=== PATIENT | female | born 1945 | race Caucasian/White ===

== ENCOUNTER 2022-08-26 07:20 | Day surgery (SDC) | payer MEDICARE, SELFPAY ==
[2022-08-20 14:56] VITALS: BMI 25.9
[2022-08-26] VITALS (12 sets, daily range): BP systolic 124–221; BP diastolic 48–95; PULSE 78–95; RESP 10–18; TEMP 35.9–37; O2SAT 94–98; BMI 25.9
--- NOTE | 2022-08-26 | DI.RAD.S_ITS ---
PROCEDURE: XR HIP W PEL IF DONE RT 2V INDICATIONS: ATERIOR HIP TECHNIQUE: 3 operative C-arm view(s) of the hip acquired. COMPARISON: [facility], , XR HIP W PEL IF DONE RT 2V, 08/26/2022, 15:09. FINDINGS: Bones: 3 operative C-arm views of the right hip demonstrate performance of a total right hip arthroplasty with no radiographic evidence of complications. Soft tissues: Overlying postoperative changes are noted. No suspicious soft tissue densities. IMPRESSION: Operative imaging utilized during total right hip arthroplasty. Dictated by: Demarco Amado M.D. on 08/26/2022 at 16:51 Approved by: Demarco Amado M.D. on 08/26/2022 at 16:52
--- NOTE | 2022-08-26 08:49 | DI.RAD.S_ITS ---
PROCEDURE: XR HIP W PEL IF DONE RT 2V INDICATIONS: Postop TECHNIQUE: AP pelvis with lateral view(s) of the right hip(s). COMPARISON: [facility], , XR HIP W PEL IF DONE RT 2V, 08/26/2022, 13:59. FINDINGS: Bones: Severe left hip degenerative changes partially seen. Right hip arthroplasty. Positioning appears appropriate. Soft tissues: Postsurgical changes in the soft tissues. IMPRESSION: Postsurgical changes following right hip arthroplasty. Partially seen severe left hip degenerative changes. Dictated by: Saad Boone M.D. on 08/26/2022 at 15:35 Approved by: Saad Boone M.D. on 08/26/2022 at 15:36
[2022-08-26] MEDS: LACTATED RINGERS 1,000 ML 42 ML IV (09:46)
[2022-08-26] MEDS: PREGABALIN 75 MG CAPSULE PO (09:47)
[2022-08-26] MEDS: CELECOXIB 200 MG CAPSULE PO (09:47)
[2022-08-26] MEDS: ACETAMINOPHEN 325 MG TABLET 975 MG PO (09:47)
--- NOTE | 2022-08-26 12:04 | PM.PREOP ---
Pre-operative Note Interval Note History & Physical reviewed/Exam performed by Physician: Yes Changes to H&P: No
--- NOTE | 2022-08-26 12:32 | P.OP_ITS ---
Operative Date/Time/Diagnoses Date of procedure: 08/26/22 Time of procedure: 12:40 Pre-op diagnosis: Right hip OA Post-op diagnosis: same Procedure & Clinicians Procedure: Right total hip arthroplasty anterior approach Same procedure as scheduled: Yes Indications: The patient has had progressively worsening right hip pain with radiographic c hanges consistent with arthritis. Non-operative management has failed and the patient has requested total hip replacement. The risks, benefits and alternatives to surgery were discussed with the patient prior to proceeding. Risks discussed included, but were not limited to, failure to relieve pain, leg length discrepancy, dislocation, stiffness, infection, nerve damage, deep venous thrombosis, pulmonary embolism, stroke, coma, heart attack, permanent paralysis and , as well as the potential need for eventual revision of the prosthetic. Surgeon: Indiana Busby Staff Certified Nurse Midwife: Carlos Scruggs Anesthesia Type: General Operative Notes Findings: Severe right hip osteoarthritis adequate stability, adequate bone Closure Type: primary Specimen(s): none sent Prosthetic devices, grafts, tissues, transplants, or devices: Busby [employer] Nephew R3 50 cup, neutral poly liner, size 1 polar stem,one 6.5 mm screw, 32 by +0 Oxinium Estimated Blood Loss (mL): 250 Blood products transfused: none Procedure in detail: The patient was brought to the operating room. Patient was carefully positioned in the supine position. Time-out was performed and antibiotics were given. Anesthesia was induced. She was positioned in the on the table in order to allow hyperextension of the hip. The right lower extremity was prepped and draped in a standard sterile fashion. An anterior right hip incision was made 1 fingerbreadth lateral to the anterior superior iliac spine and extended distally towards the greater trochanter. Dissection was carried out through skin and subcutaneous tissues. Superficial hemostasis was achieved. The fascia over the tensor fascia manoj was defined and incised with a knife. Two Allis clamps were used to grasp the fascia. Tensor fascia manoj was retracted laterally. A gelpi retractor was placed. Dissection was carried out down along the neck. The circumflex vessels were carefully identified and cauterized with the Aqua Mantis. There was good visualization of the femoral neck. A Cobra was placed superior to the neck and the gluteus fibers were carefully stripped from that superior aspect of the capsule. A 2nd retractor was placed along the inferior aspect of the neck. The rectus insertion along the capsule was partially released. A 3rd retractor that was then gently placed over the rim of the acetabulum under the rectus. Capsule was carefully incised and released from the intertrochanteric line circumferentially superior to the mid sagittal line and inferiorly to the mid sagittal line until the lesser trochanter was palpable. A tag stitch was placed both in the superior and inferior limb of the capsular insertion. Along the acetabulum capsule was also released up to the mid sagittal 12:00 position. A portion of the labrum was resected. A saw was used to perform an osteotomy at the level of the intertrochanteric line and the junction of the superior femoral neck leaving approximately 1 finger breath of residual inferior neck above the lesser trochanter. A 2nd cut was made along the femoral neck at the base of the head and a napkin ring of neck was removed. Corkscrew was placed in the femoral head and the head was removed without difficulty. Retractors were then repositioned around the acetabulum. Residual labrum was resected and additional osteophytes were removed. A reamer that was 4 mm below the templated size was placed by hand in the acetabulum and it was reamed to centralize the acetabulum. It was then reamed up to 2 under the templated size and fluoroscopy was brought in to confirm the position of the reaming and depth of reaming. I reamed 1 under the anticipated size. A trial cup was placed and noted that it was appropriately sized and fluoroscopy confirmed position and depth. The component was open and inserted without difficulty fluoroscopic imaging was used to confirm that the cup had been adequately seated and was well positioned. It was further stabilized with a single screw. Neutral poly liner was placed. The cup was tested and noted to be stable. Attention was then directed to the femur. The femur was gently hyperextended additional capsular release was performed as needed in order to allow adequate visualization of the proximal femur with elevation of the femur. Patient was placed in a hyperextended slightly adducted position with maximum external rotation. Box osteotome was used to check for any residual neck as well as sclerotic bone along the trochanter. Austin pepper was placed in the femur. Additional broaching was performed. Canal finder was used to determine the alignment of the canal and position. Size 1 broach was placed. The canal was then appropriately broached up to the templated size as long as there was adequate stability of the broach and serial advancement of the broach without excessive impingement. Specific attention was directed at avoiding varus attempting to direct the distal aspect of the broach more anteriorly and avoiding excessive anteversion. Trial reduction showed acceptable range of motion, good stability, no posterior impingement, hindu of leg length and appropriate lateral shuck. I also hyperflexed the hip and checked that there was no impingement anteriorly and there was good stability with flexion, adduction and internal rotation. A PA was used throughout the procedure was essential for retraction intraoperative positioning and adequate hemostasis. Marcaine and Exparel were injected. The stem was placed without difficulty. Repeat trial reduction and x-ray showed acceptable overall position, length, and no evidence of the femoral fracture. Final head was placed. Wound was meticulously irrigated with normal saline. The hip was reduced and additional Exparel and Marcaine were injected. The capsule was closed with interrupted nonabsorbable sutures. The fascia of the tensor was closed with interrupted and running Vicryl. No drain was placed. Any tensor fascia manoj muscle that appeared to be contused or injured which was a minimal amount was carefully resected. Capsule around the tensor was injected with Exparel and Marcaine. The skin was closed with barbed stitches for the subcutaneous tissue and skin. We also used surgical glue. The wound was dressed sterilely. Brief Betadine soak was also used and was meticulously irrigated with normal saline. Patient was transferred to recovery room in satisfactory condition. Complications: none Post-operative Condition: stable Disposition: Acute Care Plan for aftercare: The patient will be maintained on a standard total hip replacement protocol with weight bearing as tolerated and anterior hip precautions. The patient will receive Aspirin and sequential compression devices for DVT prophylaxis. The patient will be discharged home when safe for the home environment.
--- NOTE | 2022-08-26 12:32 | PM.PREOP ---
Pre-operative Note Interval Note History & Physical reviewed/Exam performed by Physician: Yes Changes to H&P: No
[2022-08-26] MEDS: CEFAZOLIN 2 GM/100 ML PREMIX 100 ML IV ×2 (12:56→20:56)
--- NOTE | 2022-08-26 13:16 | SUR.OPER ---
Supine on padded [place] table with bilateral legs secured in padded positioning boots and suspended in positioning spars, operative leg in traction per surgeon. Head on one pillow. Arm on non-operative side secured on padded armboard <90 degrees abduction. Arm on operative side padded and resting across chest then secured with tape over sheet. Padded perineal post in place per surgeon.
[2022-08-26] MEDS: BUPIVACAINE LIPOSOME 266 MG/20 ML VIAL INJ (13:22)
[2022-08-26] MEDS: BUPIVACAINE 0.25% (PF) 60 ML, EPINEPHrine 0.3 MG INJ (13:22)
--- NOTE | 2022-08-26 16:12 | PT-IP ANOTE ---
PT eval order received. EMR reviewed. Checked on pt and nurse in room and stated that pt just came up on the floor and nurse currently doing admission papers on pt. pt not ready for PT eval. provided post-op folder to pt. will f/u.
[2022-08-26] MEDS: LACTATED RINGERS 1,000 ML 100 ML IV ×2 (16:33→20:56)
[2022-08-26] MEDS: OXYCODONE IR 10 MG TABLET PO (16:41)
[2022-08-26] MEDS: IBUPROFEN 400 MG TABLET PO ×3 (16:42→23:32)
[2022-08-26] MEDS: ACETAMINOPHEN 325 MG TABLET 650 MG PO ×2 (17:46→21:00)
[2022-08-26] MEDS: diazePAM 5 MG TABLET PO (17:46)
[2022-08-26] MEDS: hydrOXYzine pamoate 25 MG CAPSULE PO (17:46)
--- NOTE | 2022-08-26 19:44 | PC.NURSE ---
Recieved from rr s/p ant rt hip. Aquacel is c/d/i, rt foot w/ ppp, feet =/warm, brisk cap refill. Has not voided since surgery. Has tolerated diet w/out problems. Lungs clear, sats are 96% RA.
[2022-08-26] MEDS: PANTOPRAZOLE DR 40 MG TABLET PO (20:57)
[2022-08-26] MEDS: ATORVASTATIN 20 MG TABLET 10 MG PO (20:57)
[2022-08-26] MEDS: OXYCODONE IR 5 MG TABLET PO ×2 (20:57→23:32)
[2022-08-26] MEDS: DOCUSATE 100 MG CAPSULE PO (20:57)
[2022-08-26] MEDS: ASPIRIN EC 81 MG TABLET PO (20:57)
[2022-08-27 00:32] VITALS: BP 138/41; PULSE 74; RESP 18; TEMP 36.7; O2SAT 93
[2022-08-27] MEDS: IBUPROFEN 400 MG TABLET PO ×3 (04:21→13:48)
[2022-08-27] MEDS: OXYCODONE IR 5 MG TABLET PO (04:21)
[2022-08-27] MEDS: CEFAZOLIN 2 GM/100 ML PREMIX 100 ML IV (04:21)
[2022-08-27 04:45] VITALS: BP 146/66; PULSE 66; RESP 18; TEMP 36.5; O2SAT 95
[2022-08-27 05:42] LABS: Hematocrit 36.4 % (36-46); Hemoglobin 12.1 g/dL (12.0-16.0)
--- NOTE | 2022-08-27 07:48 | P.DS_ITS ---
History of Present Illness History of Present Illness Date Patient Seen: 08/27/22 Time Patient Seen: 07:48 Chief complaint: Right Total Hip Arthroplasty/Anterior 08/26 Narrative: Operative Date/Time/Diagnoses Date of procedure: 08/26/22 Time of procedure: 12:40 Pre-op diagnosis: Right hip OA Post-op diagnosis: same Procedure & Clinicians Procedure: Right total hip arthroplasty anterior approach Same procedure as scheduled: Yes Indications: The patient has had progressively worsening right hip pain with radiographic changes consistent with arthritis. Non-operative management has failed and the patient has requested total hip replacement. The risks, benefits and alternatives to surgery were discussed with the patient prior to proceeding. Risks discussed included, but were not limited to, failure to relieve pain, leg length discrepancy, dislocation, stiffness, infection, nerve damage, deep venous thrombosis, pulmonary embolism, stroke, coma, heart attack, permanent paralysis and , as well as the potential need for eventual revision of the prosthetic. Surgeon: Indiana Busby Separations Scientist: Carlos Scruggs Anesthesia Type: General Operative Notes Findings: Severe right hip osteoarthritis adequate stability, adequate bone Closure Type: primary Specimen(s): none sent Prosthetic devices, grafts, tissues, transplants, or devices: Busby [employer] Nephew R3 50 cup, neutral poly liner, size 1 polar stem,one 6.5 mm screw, 32 by +0 Oxinium Estimated Blood Loss (mL): 250 Blood products transfused: none Discharge Providers Provider Discharge Date: 08/27/22 Primary care physician: Geovanna Chris MD Consults: 08/26/22 08:49 Consult to Anesthesiology Routine Comment: Consulting Provider: Anesthesiologist Reason for consultation: Regional block for post operative pain control 08/26/22 15:53 Consult to Discharge Planning Routine Comment: Consult to Occupational Therapy Evaluate & Treat Comment: Physician Instructions: Evaluate and treat Consult to Physical Therapy Evaluate & Treat Comment: Physician Instructions: post op TABITHA protocol Discharge provider: Karen Newman PA-C Summary Hospital Course Discharge Diagnosis: Right hip osteoarthritis, s/p right total hip arthroplasty Hospital Course: Ms Vaz's hospital course was unremarkable. On the morning of POD# 1, she was feeling very well and wanted to go home. She was eating and voiding without difficulty and her pain was well-controlled with oral medication. She had not yet been evaluated by PT. Exam Vital Signs (past 8 hours): - 08/27/22 00:32 08/27/22 04:45 Temperature 98.1 F 97.7 F Pulse Rate 74 66 Respiratory Rate 18 18 Blood Pressure 138/41 L 146/66 H Pulse Oximetry 93 95 Oxygen Flow Rate 0 0 Oxygen Delivery Method Room Air Oxygen Flow Rate 0 Narrative Exam Narrative: 5/5 strength in hip flexors, quadriceps, hamstrings, DF, PF, EHL on right. Sensation to light touch intact throughout RLE. Calf soft, compressible, nont mu and without palpable cords or masses. Aquacel dressing CDI. Objective Labs 08/27/22 04:50 Labs: Laboratory Results - last 24 hr 08/27/22 04:50 Hgb 12.1 Hct 36.4 PFSH Medical History (Updated 08/21/22 @ 08:13 by Karuna Fall RN) Chronic back pain History of esophageal dilatation HLD (hyperlipidemia) HTN (hypertension) Hx of ectopic Osteoarthrosis Surgical History (Updated 08/27/22 @ 07:50 by Karen Newman PA-C) History of esophagogastroduodenoscopy (EGD) History of hysterectomy History of surgical procedure (2022) Hx of bilateral cataract extraction Hx of fusion of cervical spine (01/2020) Hx of tonsillectomy Social History household members: none Smoking Status: Never smoker alcohol intake: current Discharge Assessment & Plan Assessment and Plan Assessment: Right hip osteoarthritis, s/p right total hip arthroplasty Plan of Treatment: Discharge home, multimodal pain control, ASA BIC x 6 weeks for VTE prophylaxis, outpt PT, f/u in 2 weeks in office as scheduled. Discharge Plan Discharge Plan Patient Disposition: Home Discharge orders & Medications Discharge Orders: Discharge (Order); Ordered 08/27/22 Ordered By: Karen Newman Prescriptions: New acetaminophen 325 mg Tablet 650 mg PO Q6H Qty: 240 0RF aspirin 81 mg Tablet,Delayed Release (Dr/Ec) 81 mg PO BID Qty: 90 0RF docusate sodium 100 mg Capsule 100 mg PO BID PRN (Reason: constipation) Qty: 60 1RF ibuprofen 400 mg Tablet 400 mg PO Q4H Qty: 120 0RF oxycodone 5 mg Tablet 5 mg PO Q4-6H PRN (Reason: Pain, Moderate (4-6)) Qty: 50 0RF Continued tizanidine 4 mg Tablet 4 mg PO TID PRN (Reason: Pain) pantoprazole 40 mg Tablet,Delayed Release (Dr/Ec) 40 mg PO BID losartan 25 mg Tablet 12.5 mg PO BID rosuvastatin 5 mg Tablet 5 mg PO BEDTIME diazepam 5 mg tablet 5 mg PO Q6-12H PRN (Reason: Anxiety) Patient Comments: for severe back pain cyclobenzaprine 10 mg tablet 10 mg PO TID MDD 3 PRN (Reason: Muscle Spasm) Discontinued aspirin 81 mg Capsule 81 mg PO DAILY Medication counseling provided by Pharmacist: Yes Follow up/Referrals: Geovanna Chris MD [Primary Care Provider] - Indiana Busby MD [Physician] - As previously scheduled (Follow up with Carlos Scruggs PA-C, on 09/10/2022 @ 4:30 at [facility] in [place].) Diet/Activity/Treatments Diet: Diet as Tolerated Activity: Weight Bear As Tolerated to right leg. Anterior hip precautions. Skin/Wound/Dressing Care Report to your healthcare provider any signs of infection, such as:: chills, fever, night sweats, unusual drainage and unusual redness Dressing: May shower. Leave dressing in place until follow up in office. No bathing or otherwise soaking incision. Call the office if the dressing becomes saturated inside. Visit Report/Discharge Packet Instructions: DI for Hip Replacement, How to Prevent Falls, DI for Prescription Opioid Use Stand Alone Forms: Patient Portal/API, Surgery Discharge Discharge Data Primary Care Provider: Geovanna Chris Attending Provider: Indiana Busby Quality VTE Deep Vein Thrombosis/Pulmonary Embolism Present on Admission: No
[2022-08-27 08:29] VITALS: BP 172/62; PULSE 86; RESP 16; TEMP 36.8; O2SAT 95
[2022-08-27] MEDS: ACETAMINOPHEN 325 MG TABLET 650 MG PO (09:04)
[2022-08-27] MEDS: OXYCODONE IR 10 MG TABLET PO ×2 (09:05→13:48)
[2022-08-27] MEDS: DOCUSATE 100 MG CAPSULE PO (09:07)
[2022-08-27] MEDS: LOSARTAN 25 MG TABLET 12.5 MG PO (09:07)
[2022-08-27] MEDS: diazePAM 5 MG TABLET PO (09:08)
[2022-08-27] MEDS: PANTOPRAZOLE DR 40 MG TABLET PO (09:08)
[2022-08-27] MEDS: ASPIRIN EC 81 MG TABLET PO (09:08)
--- NOTE | 2022-08-27 11:20 | OT.IP.EVAL ---
Addendum entered and electronically signed by Lashae Cohn OT 08/27/22 12:52: edit Original Note: Current Diagnoses Unilateral primary osteoarthritis, right hip (08/26/22) Presence of unspecified artificial hip joint (08/26/22) Surgery Performed Operation Date: 08/26/22 11:15 Actual Procedures p Total Hip Arthroplasty/Anterior Approach(Right) - Indiana Busby MD Past Medical History (Last Updated 08/21/22 @ 08:13 by Karuna Fall RN) Chronic back pain History of esophageal dilatation HLD (hyperlipidemia) HTN (hypertension) Hx of ectopic Osteoarthrosis Surgical History (Last Updated 08/21/22 @ 08:31 by aKruna Fall RN) History of esophagogastroduodenoscopy (EGD) History of hysterectomy History of surgical procedure (2022) Hx of bilateral cataract extraction Hx of fusion of cervical spine (01/2020) Hx of tonsillectomy Occupational Therapy Inpatient Evaluation/Re-Eval M1 PT/OT-IP Prior Functional Status Start: 08/27/22 11:22 Freq: NEEDED Status: Active Protocol: Document 08/27/22 11:48 ES (Rec: 08/27/22 12:08 ES [id number]) Medical Review Prior Functional Status Medical History Reviewed Yes Communication Indep Mobility and Gait Indep without AD Activities of Daily Living and IADL's Indep Social History Household Members none Living Arrangements House Number of Floors (Floors) One Floor Number of Stairs To Enter/Railing? None from back door of friend' s house Home Environment High Toilet,Walk in Shower Additional Social History Comment Has 3WW that she just purchased. She lives in [place], [place], and plans to stay with a friend in [place] until able to return to her own home. M2 OT-IP Current Condition Start: 08/27/22 11:22 Freq: Status: Active Protocol: Document 08/27/22 10:41 CCC (Rec: 08/27/22 12:47 CCC [id number]) Occupational Therapy Current Condition Current Condition Evaluation Date 08/27/22 Treatment Diagnosis S/P R TABITHA anterior approach Diagnosis Onset Date 08/26/22 Post Operative Precautions Anterior Hip Precautions No Hip Extension,No Hip External Rotation M3 OT- IP Subjective and Pain Start: 08/27/22 11:22 Freq: Status: Active Protocol: Document 08/27/22 10:41 [facility] (Rec: 08/27/22 12:47 [facility] [id number]) OT- Subjective Occupational Therapy Visit Type Type Initial Evaluation Visit Start Time 10:41 Visit Stop Time 11:20 Total Visit Minutes 41 Occupational Therapy Visit Comments Patient Comments Pt agreed to get up to do grooming needs at the sink. Patient/Caregiver Goals To go home. OT Pain Assessment Pain When Pain Assessed During Mobility Pain Present Pain Present Pain Reported Location Back Intensity 7 Scale Used Numeric (0 - 10) M4 OT- IP ADL's Start: 08/27/22 11:22 Freq: Status: Active Protocol: Document 08/27/22 10:41 [facility] (Rec: 08/27/22 12:47 [facility] [id number]) OT [id number] General Evaluation Self-Feeding Ability Independent OT ADL-Grooming General Evaluation Grooming Ability Independent Areas Needing Assistance Retrieving/Set-up of Grooming Items Comments OT Grooming Comments set-up assist OT ADL-Oral Care General Eval Oral Care Ability Independent OT ADL-Dressing General Eval Upper Body Dressing Ability Independent Lower Body Dressing Ability Minimal Assistance,Moderate Assistance Areas Needing Assistance Pants/Shorts,Shoes Comments OT Dressing Comments Pt needing assist for LB dressing needs and able to show pt use of standard machine stitcher to assist to get her underwear and pants on. Pt issued a long handled shoe horn. OT ADL-Toileting Comments OT Toileting Comments Suggested pt get a BSC as at her friend house the bathroom is a distance away , in addition during the day the BSC can be placed over the toilet and also used as a shower chair in the shower. OT ADL-Bathing Comments OT Bathing Comments NOt performed. M5 OT- IP IADL's Start: 08/27/22 11:22 Freq: Status: Active Protocol: Document 08/27/22 10:41 [facility] (Rec: 08/27/22 12:47 [facility] [id number]) OT-Instrumental Activities of Daily Living Deficits IADL Deficits Identified Deficits Home Safety Awareness Awareness of Need for Assistance at Home Good Awareness Ability to Problem Solve Emergency Able to Problem Solve Situations Home Safety Comments Pt to live at her friend's house and will be able to assist with her needs. M6 OT- IP Functional Cognition Start: 08/27/22 11:22 Freq: Status: Active Protocol: Document 08/27/22 10:41 [facility] (Rec: 08/27/22 12:47 [facility] [id number]) Cognitive Factors Limiting Selfcare Function Cognitive Ability Level of Alertness Alert Patient Orientation Name,Age,Birthday,Month,Date, Year,Day of Week,Place, Situation Attention Span Ability Capable of Focused Attention, Capable of Sustained Attention Ability to Follow Commands Able to Follow One Step Commands Safety Awareness Decreased Ability to Apply Precautions Cognitive Comments Cognitive Assessment Comments Pt needing occasional vc for hip precautions to remind her to use the left leg to initiate with when stepping backwards. M7 OT- IP Mobility and Balance Start: 08/27/22 11:22 Freq: Status: Active Protocol: Document 08/27/22 10:41 [facility] (Rec: 08/27/22 12:47 [facility] [id number]) OT-Transfer Assessment Sit to and From Stand Sit to and from Stand Standby Assistance Transfers Transfer Ability Standby Assistance,Contact Guard Assistance Technique Transfer Destination Chair Transfer Technique Stand Step Pivot Devices Transfer Assistive Devices Gait Belt,Front Wheeled Walker Comments Mobility Comments Pt needing occasional CGA with her 3ww and much more stable with the fww that she is considering to get. OT- Balance Assessment Sitting Balance and Reactions Static Sitting Balance Ability Normal Dynamic Sitting Balance Ability Good Standing Balance and Reactions Static Standing Balance Ability Good Dynamic Standing Balance Ability Fair M9 OT- IP Assessment and Plan Start: 08/27/22 11:22 Freq: Status: Active Protocol: Document 08/27/22 10:41 [facility] (Rec: 08/27/22 12:47 [facility] [id number]) OT Summary Assessment and Plan Potential Rehabilitation Potential Excellent Analytic Complexity at Evaluation Low Summary OT Impairments Pain,Balance,Functional Mobility,Dressing,Toileting, Bathing,Toilet Transfers, Shower Transfers Progress Towards Goals Progressing Toward Goals Assessment Summary Pt low complexity and main barriers are pain, decreased dynamic balance, and will benefit form FWW, BSC, shower chair, and standard machine stitcher. Pt to live with her friend initially. Pt to go to her friend's house to assist and outpt PT. Goals Grooming Goal Independent Dressing Goal Independent Toileting Goal Independent Bathing Goal Independent Toilet Transfer Goal Independent Shower Transfer Goal Independent Days to Meet Goals 7 Frequency of Treatment Frequency Of Treatment Once a Day Treatment Plan OT Treatment Plan ADL Training,Functional Mobility,Patient/Family Education,Discharge Planning Discharge Recommendations OT Discharge Recommendations Home with Assistance, Outpatient PT Home Equipment Needs BSC, shower chair, standard machine stitcher, FWW Transportation Needs at Discharge Private Vehicle
--- NOTE | 2022-08-27 12:08 | PT.IIE ---
Current Diagnoses Unilateral primary osteoarthritis, right hip (08/26/22) Presence of unspecified artificial hip joint (08/26/22) Surgery Performed Operation Date: 08/26/22 11:15 Actual Procedures p Total Hip Arthroplasty/Anterior Approach(Right) - [place] Busby MD Surgical History (Last Updated 08/21/22 @ 08:31 by Karuna Fall, RN) History of esophagogastroduodenoscopy (EGD) History of hysterectomy History of surgical procedure (2022) Hx of bilateral cataract extraction Hx of fusion of cervical spine (01/2020) Hx of tonsillectomy Medical History (Last Updated 08/21/22 @ 08:13 by Karuna aFll, RN) Chronic back pain History of esophageal dilatation HLD (hyperlipidemia) HTN (hypertension) Hx of ectopic Osteoarthrosis Physical Therapy Inpatient Evaluation/Re-Eval M1 PT/OT-IP Prior Functional Status Start: 08/27/22 11:22 Freq: NEEDED Status: Active Protocol: Document 08/27/22 11:48 ES (Rec: 08/27/22 12:08 ES [id number]) Medical Review Prior Functional Status Medical History Reviewed Yes Communication Indep Mobility and Gait Indep without AD Activities of Daily Living and IADL's Indep Social History Household Members none Living Arrangements House Number of Floors (Floors) One Floor Number of Stairs To Enter/Railing? None from back door of friend' s house Home Environment High Toilet,Walk in Shower Additional Social History Comment Has 3WW that she just purchased. She lives in [place], [place], and plans to stay with a friend in [place] until able to return to her own home. M2 PT-IP Current Condition Start: 08/27/22 11:48 Freq: NEEDED Status: Active Protocol: Document 08/27/22 11:48 ES (Rec: 08/27/22 12:08 ES [id number]) Physical Therapy Current Condition Current Condition Evaluation Date 08/27/22 Treatment Diagnosis s/p R anterior TABITHA Onset Date 08/26/22 M3 PT-IP Subjective Start: 08/27/22 11:48 Freq: NEEDED Status: Active Protocol: Document 08/27/22 11:48 ES (Rec: 08/27/22 12:08 ES [id number]) Subjective Physical Therapy Visit Type Type Initial Evaluation Visit Start Time 09:17 Visit Stop Time 10:43 Total Visit Minutes 51 Notes Split visit 09:17-09:42 and 10 :17-10:43 Physical Therapy Visit Comments Patient Comments Patient alert in bed, agreeable to work with PT. Reported she has PT set up in [place], [place] for next week and hopes to be home by then. Therapy Pain Assessment Pain When Pain Assessed At Rest Pain Present Pain Present Pain Reported Location Back Intensity 3 Scale Used Numeric (0 - 10) M4 PT-IP Mobility and Gait Start: 08/27/22 11:48 Freq: NEEDED Status: Active Protocol: Document 08/27/22 11:48 ES (Rec: 08/27/22 12:08 ES [id number]) PT-Bed Mobility Assessment Supine to Sit Supine to Sit Minimal Assistance Scooting Scooting to Edge of Bed Minimal Assistance Scooting Up and Down in Bed Independent PT-Transfer Assessment Sit to and From Stand Sit to and from Stand Contact Guard Assistance,Use of Upper Extremities Equipment Transfer Assistive Device Gait Belt,Front Wheeled Walker Transfers Transfer Destination Chair,Toilet Transfer Technique Ambulated Transfer Ability Level of Assist Contact Guard Assistance,Use of Upper Extremities Comments Mobility Comments Patient educated on hip precautions prior to getting out of bed. Performed supine to sit with HOB flat, no use of rails to simulate home setup. Patient required min A to push to sit, and min A for scooting to EOB. She transferred on/off toilet with CGA and use of grab bar. Cued patient to keep 2 hands on 3WW once up and moving. She was able to maintain hip precautions throughout without cueing. Gait Assessment Gait Gait Assistance Required: Contact Guard Assist Distance (Feet) 80 Able to Maintain Weight Bearing Status Yes During Gait Assistive Devices Assistive Device Gait Belt Gait Deviations General Gait Pattern Antalgic,Decreased Stride Length Factors Limiting Gait Function Factors Limiting Gait Function Decreased Strength,Pain,Poor Balance Comments Gait Comments Patient instructed in use of brakes with 3WW. She ambulated with 3WW in hallway with CGA due to mild unsteadiness with first time use of walker. Had her trial using FWW to see if she would be more steady/ comfortable with more stable walker, she preferred to use 3WW. Provided her with resources to obtain FWW if she decides she wants one. Able to maintain hip precautions with ambulation taking small steps to reduce hip extension. PT-Balance Assessment Sitting Balance and Reactions Static Sitting Balance Ability Good Dynamic Sitting Balance Ability Good Standing Balance and Reactions Static Standing Balance Ability Good Dynamic Standing Balance Ability Fair Device Used 3WW M5 PT-IP Objective Assessments Start: 08/27/22 11:48 Freq: NEEDED Status: Active Protocol: Document 08/27/22 11:48 ES (Rec: 08/27/22 12:08 ES [id number]) Orientation Orientation/Cognition Level of Alertness Alert Orientation Name,Age,Birthday,Month,Date, Year,Day of Week,Place, Situation Language Function Ability No Deficits Noted Safety Awareness Understands Safety Issues Memory Description No Deficits Noted Gross Range of Motion Upper Extremity ROM Assessment Within Functional Limits Lower Extremity ROM Assessment Right Impaired Impairments R hip limited 2/2 pain/ precautions Strength Upper Extremity Strength Assessment Within Functional Limits Lower Extremity Strength Assessment Right Impaired Hip R hip grossly 3-/5 Coordination Assessment Gross Coordination Gross Coordination WNL Sensation Assessment Sensation Gross Sensation WNL M6 PT-IP Treatment Start: 08/27/22 11:48 Freq: NEEDED Status: Active Protocol: Document 08/27/22 11:48 ES (Rec: 08/27/22 12:08 ES [id number]) Physical Therapy Treatment Exercises Exercises Ankle Pumps,Gluteal Sets,Quad Sets,Heel Slides Education Education Provided Precautions,Weight Bearing Status,Post-Op Packet,Safety M7 PT-IP Assessment and Plan Start: 08/27/22 11:48 Freq: NEEDED Status: Active Protocol: Document 08/27/22 11:48 ES (Rec: 08/27/22 12:08 ES [id number]) PT Summary Assessment and Plan Potential Rehabilitation Potential Excellent Status of Condition at Evaluation Stable Summary Impairments Pain,ROM,Strength,Balance,Bed Mobility,Transfers,Gait Assessment Summary Patient is a 76 year old female POD 1 s/p R anterior TABITHA. She required min A for bed mobility, otherwise was SBA/CGA for transfers from all surfaces and gait. She demonstrated good understanding of hip precautions and TABITHA ex's. Recommended she use FWW for increased stability, but patient adamant about using 3WW. Provided resources for obtaining FWW if she changes her mind. Patient will have good support from friend as needed. She is appropriate to d/c home with friend's assistance after one more session of PT to work on bed mobility. Goals Bed Mobility Goal Standby Assistance Other Goals Patient will be able to recall hip precautions. Days to Meet Goals 1 Frequency of Treatment Frequency Of Treatment Twice a Day Treatment Plan Physical Therapy Treatment Plan Bed Mobility Training,Post Op Education Precautions Anterior Hip Precautions No Hip Extension,No Hip External Rotation Weight Bearing Status Weight Bearing Status Weight Bear as Tolerated Allowed Weight Bearing Amount (enter % WBAT RLE or #) (%) Recommendations To Nursing Amount of Assist Needed 1 Person Assist Discharge Recommendations PT Discharge Recommendations Home with Assistance, Outpatient PT Transportation Needs at Discharge Private Vehicle
--- NOTE | 2022-08-27 12:30 | PT.IPTN ---
Current Diagnoses Unilateral primary osteoarthritis, right hip (08/26/22) Presence of unspecified artificial hip joint (08/26/22) Surgery Performed Operation Date: 08/26/22 11:15 Actual Procedures p Total Hip Arthroplasty/Anterior Approach(Right) - Indiana Busby MD Physical Therapy Treatment Note M2 PT-IP Current Condition Start: 08/27/22 11:48 Freq: NEEDED Status: Active Protocol: Document 08/27/22 11:48 ES (Rec: 08/27/22 12:08 ES [id number]) Physical Therapy Current Condition Current Condition Evaluation Date 08/27/22 Treatment Diagnosis s/p R anterior TABITHA Onset Date 08/26/22 M3 PT-IP Subjective Start: 08/27/22 11:48 Freq: NEEDED Status: Active Protocol: Document 08/27/22 12:24 ES (Rec: 08/27/22 12:30 ES [id number]) Subjective Physical Therapy Visit Type Type Treatment Note Visit Start Time 12:10 Visit Stop Time 12:23 Total Visit Minutes 13 Physical Therapy Visit Comments Patient Comments Patient up in recliner, dressed. Asked patient if she wanted pain meds prior to PT session and she declined, saying she was feeling pretty good in the chair at the moment. Plans to have her friend pick her up at 2PM today. Is feeling more confident. M4 PT-IP Mobility and Gait Start: 08/27/22 11:48 Freq: NEEDED Status: Active Protocol: Document 08/27/22 12:24 ES (Rec: 08/27/22 12:30 ES [id number]) PT-Bed Mobility Assessment Supine to Sit Supine to Sit Standby Assistance Sit to Supine Sit to Supine Standby Assistance Scooting Scooting to Edge of Bed Independent Scooting Up and Down in Bed Independent PT-Transfer Assessment Sit to and From Stand Sit to and from Stand Standby Assistance,Use of Upper Extremities Transfers Transfer Destination Bed,Chair Transfer Technique Ambulated Transfer Ability Level of Assist Standby Assistance Comments Mobility Comments Patient performed sit to/from supine with difficulty and increased pain. Instructed her in use of leg play back operator and had her trial supine to/from sit using it and was less difficult and painful. Educated her she may want to obtain one for home. Min cues during transfers for appropriate use of brakes and hand placement on bed/chair vs 3WW with transfers. Gait Assessment Gait Gait Assistance Required: Independent Distance (Feet) 20 Gait Deviations General Gait Pattern Decreased Stride Length Comments Gait Comments Ambulated with 3WW in room with good balance, no instability. PT-Balance Assessment Standing Balance and Reactions Static Standing Balance Ability Good Dynamic Standing Balance Ability Good Device Used 3WW M5 PT-IP Objective Assessments Start: 08/27/22 11:48 Freq: NEEDED Status: Active Protocol: Document 08/27/22 11:48 ES (Rec: 08/27/22 12:08 ES [id number]) Orientation Orientation/Cognition Level of Alertness Alert Orientation Name,Age,Birthday,Month,Date, Year,Day of Week,Place, Situation Language Function Ability No Deficits Noted Safety Awareness Understands Safety Issues Memory Description No Deficits Noted Gross Range of Motion Upper Extremity ROM Assessment Within Functional Limits Lower Extremity ROM Assessment Right Impaired Impairments R hip limited 2/2 pain/ precautions Strength Upper Extremity Strength Assessment Within Functional Limits Lower Extremity Strength Assessment Right Impaired Hip R hip grossly 3-/5 Coordination Assessment Gross Coordination Gross Coordination WNL Sensation Assessment Sensation Gross Sensation WNL M6 PT-IP Treatment Start: 08/27/22 11:48 Freq: NEEDED Status: Active Protocol: Document 08/27/22 12:24 ES (Rec: 08/27/22 12:30 ES [id number]) Physical Therapy Treatment Education Education Provided Precautions,Safety M7 PT-IP Assessment and Plan Start: 08/27/22 11:48 Freq: NEEDED Status: Active Protocol: Document 08/27/22 12:24 ES (Rec: 08/27/22 12:30 ES [id number]) PT Summary Assessment and Plan Summary Progress Towards Goals Safe For Discharge,Goals Met Assessment Summary Patient demonstrated increased independence with bed mobility both with and without leg play back operator; recommend leg play back operator for home to reduce effort required and pain. She was able to recall hip precautions without cues. She is appropriate to d/c home with friend's assistance, RN notified. Frequency of Treatment Frequency Of Treatment Discharge Precautions Anterior Hip Precautions No Hip Extension,No Hip External Rotation Weight Bearing Status Weight Bearing Status Weight Bear as Tolerated Allowed Weight Bearing Amount (enter % WBAT RLE or #) (%) Recommendations To Nursing Amount of Assist Needed Standby Assistance Discharge Recommendations PT Discharge Recommendations Home with Assistance, Outpatient PT Transportation Needs at Discharge Private Vehicle
--- NOTE | 2022-08-27 14:28 | PC.NURSE ---
Discharge: Pt feels ready to d/c to home. PA here and gave d/c instructions. PT here and patient passed to be able to go home. PT gave patient their instructions on exercises, ect. Pt is tolerating diet w/out problems. She is voiding w/out diff. PO pain meds have been effective for pain. Discharge packet given. Questions answered. Pt d/c to a friends home via their vehicle. Voiced no concerns.
--- NOTE | 2022-08-27 17:31 | CM.DANOTE ---
DCP Assessment: Patient is a 76 yo Female here under [facility] following planned right hip surgery with Dr. Busby on 08.26. PCP: Geovanna Chris Payer: medicare and aarp STATISTICAL MODELER reviewed EMR. PT/OT recommend home with assistance. STATISTICAL MODELER entered room and introduced self and role. Patient was sitting up in bed and appeared A/Ox4. Patient lives in [place] but is going to stay with a friend in [place] throughout recovery process. At baseline patient is completely independent and drives. Patient's friend has all the equipment, no stairs, a walker and a cane, and grab bars. Patient has OP follow up appointment set up for September 01. Plan: patient will d/c to friend's house and stay there through her recovery. Will transport with friend in [place]. No needs from this team identified at this time . DAYANNA Treadwell Discharge Planning/Care Management Advanced directive, confirm from FAMILY Start: 08/26/22 16:19 Freq: Q24H Status: Discharge Protocol: Document 08/26/22 16:19 CEW (Rec: 08/26/22 16:22 CEW [id number]) Advance Directive, confirm on record Time 16:22 Person contacted Pt Copy received No CM Discharge Assessment Start: 08/27/22 17:29 Freq: Status: Active Protocol: Document 08/27/22 17:30 SL (Rec: 08/27/22 17:31 [id number]) Discharge Planning Assessment Assigned Sleep Tech DAYANNA Livingston DPOA/Assigned Designee Name Garcia Covarrubias (friend_ Contact Information [phone] Advance Directives? Yes Advance Directives on File No History Provided By Patient,Medical Record Prior Living Arrangements House Household Members none Type of transporation used prior to Drives own vehicle admit Independent with ADL's Yes Is patient alert and oriented? Yes DME Already Rented / Owned Bath Bench,FWW / Walker,Cane Barriers to Discharge No Discharge Plan Home Transportation Arrangement friend Whiteboard Updated in Patient Room with Yes name and ext. # of Sleep Tech Review Status In Process Next Review Type Continued Stay Review Pre-Anesthesia Assessment Start: 08/20/22 14:56 Freq: Status: Complete Protocol: Document 08/20/22 14:56 CAB (Rec: 08/20/22 14:59 CAB [id number]) Pre-Anesthesia Assessment Preferred Name Cassie Patient Information Reviewed Via Phone Assessment Assessment Completed With Patient Diagnostic Results BMP/CMP,CBC,EKG,Urinalysis Comment Outside labs/EKG scanned Primary Care Provider Geovanna Chris Seen Specialist in Last 12 Months Yes Specialist Seen Orthopedist,Other Comment GI Primary Language [employer]in Parts Salesperson Required No Height 163.2 cm Weight 68.946 kg Body Mass Index (BMI) 25.9 Hearing Ability Normal Visual Assist Glasses Dentition Type Teeth, Natural Present Barriers to Learning Visual Hx Anesthesia Reactions No Hx Family Anesthesia Reaction No Hx Malignant Hyperthermia No Hx Blood Transfusions No Anesthesia Review Requested No Senior Product Manager No alcohol intake current alcohol intake frequency 0-2 drinks per day Smoking Status Never smoker Substance Use Type does not use Pain Present Pain Reported Musculoskeletal Symptoms Abnormal Gait,Back Pain, Difficulty Walking,Neck Pain, Radiating Pain into Limb History of Falling (Recent or History of Yes ) Patient is completely paralyzed or No completely immobile Mental Status Oriented to own ability Is patient on oxygen? No Does patient have PETERS/SOB No Hx Sleep Apnea No Currently Taking a Beta Radha No Hx Chest Pain No Hx SOB No Hx Syncope or Dizziness Yes: Syncope [id number], pt feels r/t severe back pain Anti-Coagulant Therapy No Has a Electrician Ship No Cardiac Testing No Hx Pacemaker/ICD No Pacemaker Rep Required? No Cardiac Clearance Received Not Applicable Diet Type At Home Regular Dysphagia No Gastrointestinal Symptoms None Urinary Catheter Present No Hx Urinary Self Catheterization No Diabetes No HgbA1C 5.2 Date 07/14/22 Patient No Lactating No Hx Drug Resistant Organism No Presence of External or Internal Medical Yes: Bilat eye IOLs, cervical Devices hardware Have you had any close contact with No someone diagnosed with COVID-19? Received a COVID vaccine? Yes Received all doses? Yes Marital Status / Lives With none Current Living Arrangements House Number of Floors (Floors) Two Floors Number of Stairs To Enter/Railing? 2 Support System Friend(s) Does the Patient Have Assistance After Yes: Plans to stay with Surgery friends in [facility] Patient Discharge Plan Description Return Home Comment Pt advised 1 day length of stay per surgeon Feels Safe in Current Environment Yes Been Physically Hurt or Threatened By a No Person in Current Environment Do you have thoughts of harming yourself None or others? Are you currently considering suicide? No Do you have a plan to hurt yourself or No Plan others? Do You Have Any Spiritual Beliefs That No May Affect Your HC Choices? Do You Have Any Cultural Practices That No May Affect Your HC Choices? Comment Denominational Who Can We Speak to About Patient's Care Family, friends Identifying Code for Release of Patient Declines to issue Information Health Care Proxy/Next of Kin Marbella (Daughter) Health Care Proxy Emergency Contact Name Elise De Paz (Sister in-law) Emergency Contact Advance Directives? Yes Advance Directives on File No Requested Patient Bring Advanced Yes Directives DOS Power of Circus Performer Yes Power of Circus Performer Name Marbella (Daughter) Power of Circus Performer PAC Instructions Do not shave/clip surgical site,Durable medical equipment ,Medications to take/avoid, Nasal antibiotic,No ETOH/ petroleum product on skin DOS, NPO,Pre-surgical wash,Sensory aids,Sturdy shoes/comfortable clothes,Do not bring valuables and remove jewelry
== END 2022-08-27 13:53 | disposition home or self-care (01) ==
LOC: OR 07:24 → AC 07:25
PROVIDERS: PCP Internal Medicine Geriatric Medicine; Referring Provider Orthopaedic Surgery; Visit Provider Orthopaedic Surgery
PROC: (CPT 27130; principal; 2022-08-26 11:15)
DX: M16.11 Unilateral primary osteoarthritis, right hip (principal)
CPT/HCPCS: 27130; 36415; 73502; 76000; 85014; 85018; 97161; 97165; 97530; 97535; C1776; C9290; J0171; J0690; J2250; J2405; J2704; J3010